=== PATIENT | male | born 1975 | race Caucasian/White ===

== ENCOUNTER 2017-10-23 12:08 | Outpatient (RCR) | payer BC, OTHER ==
[2017-10-23 12:47] LABS: SEMEN VOLUME 3.5 ML (1.5-5.0)
== END 2018-01-21 | disposition home or self-care (01) ==
LOC: LAB 12:08
PROVIDERS: ATTEND Nurse Practitioner
DX: N46.9 Male infertility, unspecified (principal)
CPT/HCPCS: 89320

== ENCOUNTER 2018-07-07 11:23 | Outpatient (RCR) | payer OTHER ==
[2018-07-07 12:06] LABS: SEMEN VOLUME 3.5 ML (1.5-5.0)
== END 2018-10-05 | disposition home or self-care (01) ==
LOC: LAB 11:23
PROVIDERS: ATTEND Obstetrics & Gynecology
DX: N46.9 Male infertility, unspecified (principal)
CPT/HCPCS: 89320

== ENCOUNTER → 2022-07-20 | Outpatient (CLI) | payer OTHER ==
--- NOTE | 2022-07-20 16:19 | Diagnostic Imaging Report ---
INDICATION: History of prior surgery 10-15 years ago. Pain. FINDINGS: Moderate medial compartment narrowing and spurring noted. There is spurring laterally. There is mild patellofemoral narrowing. No fracture or dislocation. There is a small to moderate joint effusion. 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 Dictated by: Dictated on workstation # [id number]
== END ==
LOC: RAD 14:49
PROVIDERS: ATTEND Nurse Practitioner Family
DX: M17.11 Unilateral primary osteoarthritis, right knee (principal); Z98.890 Other specified postprocedural states
CPT/HCPCS: 73562